=== PATIENT | female | born 2000 | race Caucasian/White ===

== ENCOUNTER 2018-07-15 15:31 | Emergency (ER) | payer OTHER ==
[2018-07-15 16:25] LABS: Urine Blood NEGATIVE (NEG); Urine Glucose NEGATIVE (NEG); Urine Protein NEGATIVE (NEG); Urine Specific Gravity 1.015 (1.005-1.030); Urine pH 7.5 (5.0-7.0)
[2018-07-15 16:30] LABS: Absolute Lymphocytes (CBC) 1.9 K/uL (0.7-4.9); Absolute Monocytes 0.7 K/uL (0.1-1.3); Basophils % 0.8 % (0-1.3); Eosinophils % 2.5 % (0-4.4); Hematocrit 39.1 % (36.0-45.0); Lymphocytes % 33.2 % (15.3-44.8); MCV 90.1 fL (80-100); MPV 8.9 fL (7.6-11.3); Monocytes % 11.3 % (3.3-12.3); RBC Red Blood Cell Count 4.34 M/uL (3.86-4.86)
[2018-07-15 16:46] LABS: ALT/SGPT 19 U/L (12-78); AST/SGOT 21 U/L (15-37); Albumin 3.9 g/dL (3.4-5.0); Alkaline Phosphatase 53 U/L (45-117); Amylase Level 55 U/L (25-115); BUN Blood Urea Nitrogen 9 mg/dL (7-18); Bicarbonate 29 mmol/L (21-32); Bilirubin Direct 0.2 mg/dL (0-0.2); Bilirubin Total 0.7 mg/dL (0.2-1.0); Glucose Level 90 mg/dL (74-106); Lipase 153 U/L (73-393); Potassium 4.1 mmol/L (3.5-5.1); Protein, Total 7.1 g/dL (6.4-8.2); Sodium Level 140 mmol/L (136-145)
[2018-07-15 17:00] LABS: Urine Bacteria <20 /HPF (<20); Urine Culture Reflex Order NOT NEEDED; Urine RBC <5 /HPF (NONE SEEN)
--- NOTE | 2018-07-15 17:34 | ER ---
Nurse's Notes [facility] Name: Rosanna Payton Age: 18 yrs Sex: Female : 2000 Arrival Date: 07/15/2018 Time: 15:36 Bed 25 Private MD: Diagnosis: Urinary tract infection, site not specified Presentation: 07/15 15:41 Presenting complaint: Patient states: "I haven't had my period in like 3 months". Pt aa5 reports fatigue and feeling lightheaded. Pt reports negative test today. Transition of care: patient was not received from another setting of care. Onset of symptoms was July 2018. Risk Assessment: Do you want to hurt yourself or someone else? Patient reports no desire to harm self or others. Initial Sepsis Screen: Does the patient meet any 2 criteria? No. Patient's initial sepsis screen is negative. Does the patient have a suspected source of infection? No. Patient's initial sepsis screen is negative. Care prior to arrival: None. 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 - Social history:: Smoking status: Patient uses tobacco products, smokes one-half pack cigarettes per day, Patient/guardian denies using alcohol, street drugs, The patient lives with family. - Ebola Screening: : No symptoms or risks identified at this time. - Family history:: not pertinent. Screenin:51 Abuse screen: Denies threats or abuse. Denies injuries from another. Nutritional aj screening: No deficits noted. Tuberculosis screening: No symptoms or risk factors identified. Fall Risk None identified. Assessment: 15:58 General: Appears in no apparent distress. comfortable, Behavior is calm, cooperative, aj appropriate for age. Pain: Denies pain. Neuro: Level of Consciousness is awake, alert, obeys commands, Oriented to person, place, time, situation, Appropriate for age. Neuro: Reports Fatigue. Respiratory: Airway is patent Trachea midline Respiratory effort is even, unlabored, Respiratory pattern is regular, symmetrical. : Denies burning with urination. : Reports Irregular menses. Derm: Skin is intact, is healthy with good turgor, Skin is pink, warm \\T\\ dry. normal. 17:51 Reassessment: Patient appears in no apparent distress at this time. No changes from aj previously documented assessment. Patient and/or family updated on plan of care and expected duration. Pain level reassessed. Patient is alert, oriented x 3, equal unlabored respirations, skin warm/dry/pink. Vital Signs: 15:42 BP 111 / 71; Pulse 59; Resp 16 S; Temp 97.3(TE); Pulse Ox 99% on R/A; Weight 56.7 kg aa5 (R); Height 5 ft. 4 in. (162.56 cm) (R); Pain 0/10; 17:53 BP 116 / 69; Pulse 58; Resp 16; Pulse Ox 99% on R/A; aj 15:42 Body Mass Index 21.46 (56.70 kg, 162.56 cm) aa5 ED Course: 15:36 Patient arrived in ED. mr 15:42 Triage completed. aa5 15:42 Arm band placed on. aa5 15:53 Aquiles Zheng MD is Attending Physician. rn 15:54 Attending Physician role handed off by Aquiles Zheng MD ma2 15:54 Ranjan Kathleen MD is Attending Physician. ma2 15:57 Brittni Mcdaniel, RN is Primary Nurse. aj 16:16 Initial lab(s) drawn, by mi, sent to lab. Inserted saline lock: 20 gauge in left iw antecubital area, using aseptic technique. Blood collected. 17:51 Patient has correct armband on for positive identification. aj 17:51 No provider procedures requiring assistance completed. IV discontinued, intact, aj bleeding controlled, No redness/swelling at site. Pressure dressing applied. Administered Medications: No medications were administered Outcome: 17:34 Discharge ordered by . ma2 17:53 Discharged to home ambulatory, with family. aj 17:53 Condition: good 17:53 Discharge instructions given to patient, family, Instructed on discharge instructions, follow up and referral plans. medication usage, Demonstrated understanding of instructions, follow-up care, medications, Prescriptions given X 1. 17:54 Patient left the ED. aj Signatures: Brittni Mcdaniel, Alesia Lopez RN mr Carmine, Meggan, Aquiles Pisano RN, MD MD rn Calderon, Marilia, SANDRA FLORES aa5 Ranjan Kathleen MD MD ma2
--- NOTE | 2018-07-15 17:35 | EDPHYS ---
Physician Documentation [facility] Name: Rosanna Payton Age: 18 yrs Sex: Female : 2000 Arrival Date: 07/15/2018 Time: 15:36 Bed 25 Private MD: ED Physician Ranjan Kathleen HPI: 07/15 15:59 This 18 yrs old Female presents to ER via Ambulatory with complaints of ma2 Dizziness. 15:59 The patient presents with dizziness. Onset: The symptoms/episode began/occurred ma2 gradually, 4 week(s) ago. Context: occurred at home. Associated signs and symptoms: Pertinent positives: abdominal pain, Pertinent negatives: agitation, blurred vision, combativeness, diaphoresis, headache, , seizure, shortness of breath, tingling. Severity of symptoms: At their worst the symptoms were moderate in the emergency department the symptoms are unchanged. The patient has experienced similar episodes in the past. 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 - Social history:: Smoking status: Patient uses tobacco products, smokes one-half pack cigarettes per day, Patient/guardian denies using alcohol, street drugs, The patient lives with family. - Ebola Screening: : No symptoms or risks identified at this time. - Family history:: not pertinent. ROS: 15:59 Constitutional: Negative for fever, chills, and weight loss, ENT: Negative for injury, ma2 pain, and discharge, Neck: Negative for injury, pain, and swelling, Respiratory: Negative for shortness of breath, cough, wheezing, and pleuritic chest pain, Back: Negative for injury and pain, Skin: Negative for injury, rash, and discoloration, Neuro: Negative for headache, weakness, numbness, tingling, and seizure. 15:59 Abdomen/GI: Positive for abdominal pain. Exam: 15:59 Constitutional: This is a well developed, well nourished patient who is awake, alert, ma2 and in no acute distress. Chest/axilla: Normal chest wall appearance and motion. Nontender with no deformity. No lesions are appreciated. Cardiovascular: Regular rate and rhythm with a normal S1 and S2. No gallops, murmurs, or rubs. Normal PMI, no JVD. No pulse deficits. Respiratory: Lungs have equal breath sounds bilaterally, clear to auscultation and percussion. No rales, rhonchi or wheezes noted. No increased work of breathing, no retractions or nasal flaring. Abdomen/GI: Soft, non-tender, with normal bowel sounds. No distension or tympany. No guarding or rebound. No evidence of tenderness throughout. MS/ Extremity: Pulses equal, no cyanosis. Neurovascular intact. Full, normal range of motion. Neuro: Awake and alert, GCS 15, oriented to person, place, time, and situation. Cranial nerves II-XII grossly intact. Motor strength 5/5 in all extremities. Sensory grossly intact. Cerebellar exam normal. Normal gait. Vital Signs: 15:42 BP 111 / 71; Pulse 59; Resp 16 S; Temp 97.3(TE); Pulse Ox 99% on R/A; Weight 56.7 kg aa5 (R); Height 5 ft. 4 in. (162.56 cm) (R); Pain 0/10; 17:53 BP 116 / 69; Pulse 58; Resp 16; Pulse Ox 99% on R/A; aj 15:42 Body Mass Index 21.46 (56.70 kg, 162.56 cm) aa5 MDM: 15:53 Patient medically screened. rn 15:59 Differential diagnosis: idiopathic dizziness, near-syncope, . ma2 15:59 Differential diagnosis: UTI, gastritis. ma2 17:33 Data reviewed: vital signs, nurses notes, EMS record, [facility] records, lab test ma2 result(s), EKG. Counseling: I had a detailed discussion with the patient and/or guardian regarding: the historical points, exam findings, and any diagnostic results supporting the discharge/admit diagnosis, the presence of at least one elevated blood pressure reading (>120/80) during this emergency department visit, the need for outpatient follow up. 07/15 15:54 Order name: Amylase, Serum; Complete Time: 16:59 [facility] 07/15 15:54 Order name: Basic Metabolic Panel; Complete Time: 16:59 [facility] 07/15 15:54 Order name: CBC with Diff; Complete Time: 16:59 [facility] 07/15 15:54 Order name: Creatinine for Radiology; Complete Time: 16:59 [facility] 07/15 15:54 Order name: Hepatic Function; Complete Time: 16:59 [facility] 07/15 15:52 Order name: Urine Dipstick-Ancillary (obtain specimen); Complete Time: 17:50 07/15 15:54 Order name: Urine Test (obtain specimen); Complete Time: 17:11 [facility] 07/15 15:54 Order name: Lipase; Complete Time: 16:59 [facility] 07/15 15:54 Order name: Urine Microscopic Only; Complete Time: 17:06 [facility] 07/15 15:54 Order name: IV Saline Lock; Complete Time: 16:20 [facility] 07/15 15:54 Order name: Labs collected and sent; Complete Time: 16:20 [facility] 07/15 16:04 Order name: Urine Dipstick--Ancillary (enter results); Complete Time: 16:59 07/15 16:04 Order name: Urine --Ancillary (enter results); Complete Time: 16:59 07/15 15:54 Order name: Urine Dipstick-Ancillary (obtain specimen); Complete Time: 16:20 ma2 Administered Medications: No medications were administered Disposition: 07/15/18 17:34 Discharged to Home. Impression: Urinary tract infection, site not specified. - Condition is Stable. - Discharge Instructions: Urinary Tract Infection, Adult. - Prescriptions for Baclofen 10 mg Oral Tablet - take 1 tablet by ORAL route 3 times per day; 20 tablet. - Medication Reconciliation Form, Thank You Letter, Antibiotic Education, Prescription Opioid Use form. - Follow up: Private Physician; When: Tomorrow; Reason: Continuance of care. - Problem is new. - Symptoms are unchanged. Signatures: Dispatcher [employer] EDMS Juany Aleman Amanda, RN RN aj Nieto, Roman, MD MD rn Calderon, Audri, RN RN aa5 Ranjan Kathleen MD MD ma2 Corrections: (The following items were deleted from the chart) 17:54 17:34 07/15/2018 17:34 Discharged to Home. Impression: Urinary tract infection, site aj not specified. Condition is Stable. Forms are Medication Reconciliation Form, Thank You Letter, Antibiotic Education, Prescription Opioid Use. Follow up: Private Physician; When: Tomorrow; Reason: Continuance of care. Problem is new. Symptoms are unchanged. ma2
== END 2018-07-15 17:54 | disposition home or self-care (01) ==
LOC: ER 15:31
DX: N39.0 Urinary tract infection, site not specified (principal); F17.210 Nicotine dependence, cigarettes, uncomplicated
CPT/HCPCS: 36415; 80048; 80076; 81003; 81015; 81025; 82150; 83690; 85025; 99283